=== PATIENT | female | born 1945 | race Caucasian/White ===

== ENCOUNTER 2021-12-19 10:57 | Outpatient (CLI) | payer MEDICARE, SELFPAY ==
--- NOTE | 2021-12-19 11:14 | USCV_ITS ---
Kristin Guevara Age: 75 Gender: F : 1945 Exam Date: 12/19/2021 11:47 Ordering Phys: Chacho Finney MD Technologist: Exam Location: [facility] [place] Indication: ao pros BP: 130 / 76 HR: 61 Rhythm: Sinus Technical Quality: Adequate MEASUREMENTS (Male / Female) Normal Values 2D ECHO LV Diastolic Diameter PLAX 4.1 cm 4.2 - 5.9 / 3.9 - 5.3 cm LV Systolic Diameter PLAX 3.5 cm IVS Diastolic Thickness 1.2 cm 0.6 - 1.0 / 0.6 - 0.9 cm IVS Systolic Thickness 1.4 cm LVPW Diastolic Thickness 1.2 cm 0.6 - 1.0 / 0.6 - 0.9 cm LVPW Systolic Thickness 1.2 cm LVOT Diameter 2.0 cm LV Ejection Fraction 2D Teich 32.8 % LV Ejection Fraction MOD 2C 66.7 % LV Ejection Fraction 2C AL 66.6 % LA Diameter 2.8 cm Aorta at Sinotubular Diameter 2.8 cm M-MODE Aortic Annulus Diameter 3.2 cm LA Ao Ratio MM 0.9 MV E Point Septal Separation 1.0 cm DOPPLER AV Peak Velocity 199.0 cm/s LVOT Peak Velocity 110.0 cm/s AV Area Cont Eq vti 2.0 cm squared AV Area Cont Eq pk 1.8 cm squared MV Area PHT 5.0 cm squared Mitral E to A Ratio 1.2 MV E' Velocity 54.0 cm/s Mitral E to MV E' Ratio 8.0 Mitral E to LV E' Lateral Ratio 7.2 Mitral E to LV E' Septal Ratio 9.1 TR Peak Velocity 207.0 cm/s TR Peak Gradient 17.1 mmHg TV Peak E Velocity 149.0 cm/s Right Atrial Pressure 3.0 mmHg Pulmonary Artery Systolic Pressu 20.1 mmHg RV Acceleration Time 0.2 s FINDINGS Left Ventricle Left ventricle is normal in size. LV systolic function is normal with EF 55 to 60%. No regional wall motion abnormalities are seen. Right Ventricle Grossly normal in size and function Right Atrium Normal in size Left Atrium Left atrium is dilated Mitral Valve Structurally normal mitral valve. Trace mitral regurgitation Aortic Valve Possible bioprosthetic aortic valve. No significant stenosis or regurgitation Tricuspid Valve Mild tricuspid regurgitation. RVSP is 25 to 30 mmHg. Pulmonary artery systolic pressure is normal Pulmonic Valve Grossly normal Pericardium Normal Aorta Normal in size IVC CONCLUSIONS LV systolic function is normal with EF of 55 to 60%. Left atrial dilation Normally functioning bioprosthetic aortic valve Trace mitral regurgitation Mild tricuspid regurgitation Compared to prior echocardiogram from 06/20/2018, no significant changes are seen Abimael Magaña MD (Electronically Signed) Final Date: 30 December 2021 22:18 S
== END 2021-12-19 10:58 | disposition home or self-care (01) ==
LOC: RAD 11:03
PROVIDERS: PCP Family Medicine; Visit Provider Family Medicine
DX: I10 Essential (primary) hypertension (principal); I08.1 Rheumatic disorders of both mitral and tricuspid valves; Z95.2 Presence of prosthetic heart valve
CPT/HCPCS: 93306

== ENCOUNTER → 2022-05-25 09:14 | Outpatient (BNVA) | payer MEDICARE, SELFPAY | PROVIDERS: PCP Family Medicine; Visit Provider Internal Medicine Cardiovascular Disease | DX: I48.91 Unspecified atrial fibrillation (principal); Z95.2 Presence of prosthetic heart valve; I10 Essential (primary) hypertension; Z87.891 Personal history of nicotine dependence | CPT/HCPCS: 99213 ==

== ENCOUNTER → 2022-07-24 08:23 | Outpatient (BNVA) | payer MEDICARE, SELFPAY | PROVIDERS: PCP Family Medicine; Visit Provider Family Medicine | DX: Z86.39 Personal history of other endocrine, nutritional and metabolic disease (principal); I10 Essential (primary) hypertension; Z86.79 Personal history of other diseases of the circulatory system | CPT/HCPCS: 80061; 84443; 85025 ==

== ENCOUNTER → 2022-12-14 08:49 | Outpatient (BNVA) | payer MEDICARE, SELFPAY | PROVIDERS: PCP Family Medicine; Visit Provider Internal Medicine Cardiovascular Disease | DX: I10 Essential (primary) hypertension (principal); Z95.2 Presence of prosthetic heart valve; I48.91 Unspecified atrial fibrillation; E03.9 Hypothyroidism, unspecified; Z87.891 Personal history of nicotine dependence; Z79.82 Long term (current) use of aspirin | CPT/HCPCS: 99213 ==

== ENCOUNTER → 2023-04-12 08:28 | Outpatient (BNVA) | payer MEDICARE, SELFPAY | PROVIDERS: PCP Family Medicine; Visit Provider Family Medicine | DX: I10 Essential (primary) hypertension (principal); Z86.79 Personal history of other diseases of the circulatory system; Z86.39 Personal history of other endocrine, nutritional and metabolic disease | CPT/HCPCS: 80053; 80061; 84443; 85025 ==

== ENCOUNTER → 2024-04-21 11:00 | Outpatient (BNVA) | payer MEDICARE, SELFPAY | PROVIDERS: PCP Family Medicine; Visit Provider Family Medicine | DX: I10 Essential (primary) hypertension (principal); Z95.2 Presence of prosthetic heart valve; Z86.39 Personal history of other endocrine, nutritional and metabolic disease | CPT/HCPCS: 80053; 80061; 84443; 85025 ==

== ENCOUNTER 2024-08-14 11:32 | Emergency (ER) | payer MEDICARE, SELFPAY ==
[2024-08-14 11:34] VITALS: BP 170/90; PULSE 93; RESP 16; TEMP 36.3; O2SAT 99; BMI 22.3
--- NOTE | 2024-08-14 11:43 | XR_ITS ---
WS: [id number] XR chest 1V portable [id number] REASON FOR EXAM: dizziness FINDINGS: Sternal sutures and prosthetic aortic valve. Moderate tortuosity and ectasia of the thoracic aorta. The heart is at the upper limits of normal in size. Calcified granulomas disease bilaterally. No acute pulmonary parenchymal or pleural abnormality. Mild to moderate dextroscoliosis and degenerative spondylosis of the thoracic spine. XR/XR chest 1V portable [id number] IMPRESSION: Cardiovascular findings as above. No acute chest abnormality.
--- NOTE | 2024-08-14 11:44 | ECG_ITS ---
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 Measurements Intervals [place] Rate: 80 P: 65 LA: 269 QRS: 93 QRSD: 94 T: 71 QT: 391 QTc: 453 Interpretive Statements SINUS RHYTHM WITH FIRST DEGREE AV BLOCK INDETERMINATE AXIS LOW QRS VOLTAGE IN PRECORDIAL LEADS [QRS DEFLECTION < 1.0 mV IN CHEST LEADS] No previous ECG available for comparison Electronically Signed On 08-14-2024 13:32:07 CDT by Abimael Magaña M.D. [id number] [id number]
--- NOTE | 2024-08-14 12:22 | ED_ITS ---
HPI - General Adult 2 General: Chief complaint: General Medical Stated complaint: not eatting, dizzy, unstable balance Time Seen by Provider: 08/14/24 11:56 Source: patient Mode of arrival: ambulatory Limitations: no limitations History of Present Illness: 78-year-old female who states that she g ot an argument with her on Saturday she states that he is threatening to leave her and its caused her being extremely stressed and anxious she states that she has been extremely anxious to the point where she has not been able to eat or drink and she is having generalized weakness and difficulty walking. She denies any chest pain she denies suicidal or homicidal ideations Associated symptoms: Deny chest pain, dyspnea, headache(s), nausea, rash or vomiting Related Data Home Medications ?Medication ?Instructions ?Recorded ?Confirmed aspirin 81 mg tablet,delayed 81 mg PO DAILY 11/27/19 0 08/14/24 release (Adult Aspirin Regimen) multivitamin 1 tab PO DAILY 11/27/1912/31 Previous Rx's ?Medication ?Instructions ?Recorded amlodipine 5 mg tablet 5 mg PO DAILY #90 tabs 08/12 losartan 50 mg-hydrochlorothiazide 1 tab PO BID #180 t abs 04/21/24 12.5 mg tablet levothyroxine 100 mcg tablet 100 mcg PO DAILY #30 tabs 07/06/24 (Levoxyl) ondansetron 4 mg disintegrating 4 mg PO Q6H PRN nausea and 08/14/24 tablet vomiting #14 tabs Allergies Allergy/AdvReac Type Severity Reaction Status Date / Time No Known Allergies Allergy Verified 12/14/22 07:34 Review of Systems 2 Const: Denies: fever(s), chills, body aches or change in appetite Eyes: Denies: blurry vision or eye discomfort ENMT: Denies: throat pain or dental pain Card: Denies: chest pain Resp: Denies: dyspnea GI: Denies: abdominal pain, nausea, vomiting or diarrhea Musc: Denies: neck pain or back pain Skin/Breast: Denies: rash Neuro: Denies: headache(s) Psych: Reports: depression PFSH ED 2 PFSH: Medical History History of hypothyroidism Essential hypertension History of atrial fibrillation Surgical History Aortic valve replaced Social History Smoking and tobacco/nicotine status: unknown if used tobacco/nicotine Physical Exam 2 Const: COMMON NORMALS: patient oriented x3 HENMT: COMMON NORMALS: normocephalic and atraumatic HEAD & SCALP: n ormocephalic and atraumatic Eye: COMMON NORMALS: conjunctivae normal CONJUNCTIVA: Yes conjunctivae normal Neck/C-Spine: COMMON NORMALS: full ROM and supple Chest: COMMONS NORMALS: normal inspection of the chest Resp: COMMON NORMALS: normal respiratory effort, No retractions, No use of accessory muscles and clear to auscultation bilaterally AUSCULTATION: clear to auscultation bilaterally Cardio: COMMON NORMALS: regular rate, regular rhythm and No murmurs present (Cardio) RATE: regular rate RHYTHM: regular rhythm GI: COMMON NORMALS: Normal to inspection, nondistended, normoactive bowel sounds present, Soft to palpation, non-tender and no masses PALPATION: Yes Soft to palpation Extremity: COMMON NORMALS: normal to inspection and full ROM Neuro: COMMON NORMALS: patient oriented x3, moves all extremities and no focal motor deficits Psych: COMMON NORMALS: mental status grossly normal, Normal thought process present and cooperative THOUGHT PROCESS: Normal thought process present Skin: COMMON NORMALS: no rashes or lesions noted and no wounds GENERAL SKIN EXAM: no rashes or lesions noted Course 2 Vital Signs: Vital signs: Vital Signs Temperature 97.3 F L 08/14/24 11:34 Pulse Rate 86 08/14/24 12:49 Respiratory Rate 16 08/14/24 11:34 Blood Pressure 168/95 08/14/24 12:49 Pulse Oximetry 98 08/14/24 12:49 Oxygen Delivery Me thod Room Air 08/14/24 12:49 MDM - General Adult Medical Decision Making Patient presents here with generalized weakness and fatigue she has not been eating all likely stress-induced from her recent break-up blood work imaging here are normal she was able to ambulate here did feel improved will prescribe her Zofran with did get her set up with a walker she has follow-up with her PCP this next week as scheduled return if worsening Medical Records I reviewed the patient's medical records. Lab Data I reviewed the patient's lab results. 08/14/24 12:45 08/14/24 12:45 Radiology Impressions Chest X-Ray 08/14/24 11:43 IMPRESSION: Cardiovascular findings as above. No acute chest abnormality. Head CT 08/14/24 13:57 IMPRESSION: 1. No evidence of intracranial hemorrhage or mass effect. 2. No acute intracranial findings. Laboratory Results WBC 5.85 10^3/uL (3.29-11.43) 08/14/24 12:45 RBC 3.34 10^6/uL (3.85-5.65) L 08/14/24 12:45 Hgb 11.20 g/dL (11.27-16.99) L 08/14/24 12:45 Hct 32.9 % (36-47) L 08/14/24 12:45 MCV 98.5 fl (85-98) H 08/14/24 12:45 MCH 33.5 pg (27-33) H 08/14/24 12:45 MCHC 34.0 g/dL (30-55) 08/14/24 12:45 RDW 11.8 % (12.1-15.1) L 08/14/24 12:45 Plt Count 191 10^3/cmm (157-399) 08/14/24 12:45 MPV 9.7 fL (7.4-10.4) 08/14/24 12:45 Neut % (Auto) 66.7 % 08/14/24 12:45 Lymph % (Auto) 18.3 % 08/14/24 12:45 [place] % (Auto) 11.3 % 08/14/24 12:45 Eos % (Auto) 1.5 % 08/14/24 12:45 Baso % (Auto) 1.7 % 08/14/24 12:45 Neut # (Auto) 3.90 10^3/uL (1.8-7.7) 08/14/24 12:45 Lymph # (Auto) 1.1 10^3/uL (0.8-4.8) 08/14/24 12:45 [place] # (Auto) 0.7 10^3/uL (0.2-0.9) 08/14/24 12:45 Eos # (Auto) 0.1 10^3/uL (0.0-0.8) 08/14/24 12:45 Baso # (Auto) 0.1 10^3/uL (0.0-0.1) 08/14/24 12:45 Nucleated RBC % (auto) 0 % 08/14/24 12:45 Nucleated RBCs # 0.0 /100WBC 08/14/24 12:45 PT 13.30 SECONDS (12.1-14.9) 08/14/24 12:45 INR 0.94 (0.8-1.2) 08/14/24 12:45 Sodium 131 mmol/L (136-145) L 08/14/24 12:45 Potassium 3.7 mmol/L (3.5-5.1) 08/14/24 12:45 Chloride 94 mmol/L (98-107) L 08/14/24 12:45 Carbon Dioxide 23 mmol/L (22-29) 08/14/24 12:45 Anion Gap 17.7 (5-19) 08/14/24 12:45 BUN 16 mg/dL (8-23) 08/14/24 12:45 Creatinine 0.6 mg/dL (0.5-0.9) 08/14/24 12:45 GFR Calculation Not Reportable 08/14/24 12:45 Glucose 97 mg/dL (65-115) 08/14/24 12:45 Calculated Osmolality 273 mOsm/kg (285-295) L 08/14/24 12:45 Calcium 9.4 mg/dL (8.5-10.5) 08/14/24 12:45 Total Bilirubin 0.6 mg/dL (0.15-1.2) 08/14/24 12:45 AST 26 U/L (0-32) 08/14/24 12:45 ALT 12 U/L (0-33) 08/14/24 12:45 Alkaline Phosphatase 36 U/L (35-105) 08/14/24 12:45 Total Protein 7.5 g/dL (6.6-8.7) 08/14/24 12:45 Albumin 4.3 g/dL (3.5-5.2) 08/14/24 12:45 Globulin 3.2 g/dL (1.3-4.6) 08/14/24 12:45 TSH 5.24 uIU/mL (0.27-4.20) H 08/14/24 12:45 All radiology interpretation(s) finalized by discharge EKG Data EKG 1: I personally reviewed and interpreted this EKG as follows: EKG interpretation date: 08/14/24 EKG interpretation time: 12:54 Interpretation: nsr hr [address] elevation qrs 94 qtc 427 Computer generated interpretation: Chest X-Ray 08/14/24 11:43 IMPRESSION: Cardiovascular findings as above. No acute chest abnormality. Head CT 08/14/24 13:57 IMPRESSION: 1. No evidence of intracranial hemorrhage or mass effect. 2. No acute intracranial findings. Discharge Plan Discharge Patient Disposition: Home Clinical Impression: Generalized weakness Condition: Stable Prescriptions: New ondansetron 4 mg tablet,disintegrating 4 mg PO Q6H PRN (Reason: nausea and vomiting) Qty: 14 0RF No Action aspirin [Adult Aspirin Regimen] 81 mg tablet,delayed release (DR/EC) 81 mg PO DAILY multivitamin Tablet 1 tab PO DAILY losartan-hydrochlorothiazide 50-12.5 mg tablet 1 tab PO BID Qty: 180 4RF amlodipine 5 mg tablet 5 mg PO DAILY Qty: 90 4RF levothyroxine [Levoxyl] 100 mcg tablet 100 mcg PO DAILY Qty: 30 11RF Discharge Orders: Discharge ED (Routine); Ordered 08/14/24 Ordered By: Duc Rojas Other Ambulatory Orders: DME: [facility] (Order) Location: None Selected Ordered By: Duc Rojas Referrals: Chacho Finney MD [Primary Care Provider, [facility]] - 4-7 days Discharge Diet: Advance as tolerated Discharge Activity: Resume usual activity Patient Instructions: Weakness (ED) Print Language: Slovak Coding Level of Care Code ED Display Fabrication Supervisor for Chg Celi
[2024-08-14] MEDS: ondansetron 2 mg/ML SDV 2 mL 4 MG IVP (12:45)
[2024-08-14] MEDS: LORazepam 1 MG/0.5 ML injection 0.5 MG IVP (12:45)
[2024-08-14] MEDS: sodium chloride 0.9% 1,000 ML 999 ML IV (12:47)
[2024-08-14 12:49] VITALS: BP 168/95; PULSE 86; O2SAT 98
[2024-08-14 12:50] LABS: Basophils # 0.1 10^3/uL (0.0-0.1); Basophils % 1.7 %; Eosinophils # 0.1 10^3/uL (0.0-0.8); Eosinophils % 1.5 %; Hematocrit 32.9 % (36-47); Lymphocytes # 1.1 10^3/uL (0.8-4.8); Lymphocytes % 18.3 %; Mean Corpuscular Hemoglobin 33.5 pg (27-33); Mean Corpuscular Volume 98.5 fl (85-98); Mean Platelet Volume 9.7 fL (7.4-10.4); Monocytes # 0.7 10^3/uL (0.2-0.9); Monocytes % 11.3 %; Neutrophils % 66.7 %; Nucleated Red Blood Cells % 0 %; Platelet Count 191 10^3/cmm (157-399); Red Blood Count 3.34 10^6/uL (3.85-5.65); Red Cell Distribution Width 11.8 % (12.1-15.1); White Blood Count 5.85 10^3/uL (3.29-11.43)
[2024-08-14 13:06] LABS: INR 0.94 (0.8-1.2)
[2024-08-14 13:19] LABS: Alanine Aminotransferase 12 U/L (0-33); Albumin Level 4.3 g/dL (3.5-5.2); Alkaline Phosphatase 36 U/L (35-105); Anion Gap 17.7 (5-19); Aspartate Amino Transferase 26 U/L (0-32); Blood Urea Nitrogen 16 mg/dL (8-23); Calcium 9.4 mg/dL (8.5-10.5); Carbon Dioxide 23 mmol/L (22-29); Chloride 94 mmol/L (98-107); Creatinine Clr Calc Pharmacy 51.6083; Globulin 3.2 g/dL (1.3-4.6); Glucose 97 mg/dL (65-115); Osmolality Calculated 273 mOsm/kg (285-295); Potassium 3.7 mmol/L (3.5-5.1); Sodium 131 mmol/L (136-145); Thyroid Stimulating Hormone 5.24 uIU/mL (0.27-4.20); Total Bilirubin 0.6 mg/dL (0.15-1.2); Total Protein 7.5 g/dL (6.6-8.7)
--- NOTE | 2024-08-14 13:57 | CT_ITS ---
WS: [id number] CT HEAD TECHNIQUE: Noncontrast CT of the head obtained from the skullbase to the vertex. CLINICAL INFORMATION: weakness COMPARISON: None. DLP: 1041.[address] scans at [facility] use at least one of these dose optimization techniques: automated exposure control; mA and/or kV adjustment per patient size (includes targeted exams where dose is matched to clinical indication); or iterative reconstruction. FINDINGS: No evidence of intracranial hemorrhage or mass effect. Ventricular system and basal cisterns are patent. Mild small vessel changes with moderate parenchymal volume loss. No extra-axial fluid collections. No evidence of mass or mass effect. Vascular calcification. Paranasal sinuses and mastoid air cells are well aerated. .Normal visualized soft tissues. CT/CT head wo con* [id number] IMPRESSION: 1. No evidence of intracranial hemorrhage or mass effect. 2. No acute intracranial findings.
[2024-08-14 16:52] VITALS: BP 120/59; PULSE 65; O2SAT 97
== END 2024-08-14 16:55 | disposition home or self-care (01) ==
PROVIDERS: Emergency Provider Emergency Medicine; PCP Family Medicine
DX: R53.1 Weakness (principal); Z79.82 Long term (current) use of aspirin; I10 Essential (primary) hypertension
CPT/HCPCS: 36415; 70450; 71045; 80053; 84443; 85025; 85610; 93005; 96374; 96375; 99285; J2060; J2405; J7030